=== PATIENT | female | born 1980 | race Caucasian/White ===

== ENCOUNTER 2017-04-13 19:53 | Emergency (ER) | payer SELFPAY ==
[2017-04-13 20:28] VITALS: BP 131/83
[2017-04-13] MEDS ORDERED: ACETAMINOPHEN 325 MG TABLET PO ONE (21:06)
[2017-04-13] MEDS ORDERED: ONDANSETRON 4 MG TAB.RAPDIS PO ONE (21:06)
[2017-04-13 21:16] LABS: APPEARANCE,URINE SLIGHTLY-CLOUDY; BILIRUBIN,URINE NEGATIVE (NEGATIVE); GLUCOSE, URINE NEGATIVE (NEGATIVE); KETONES,URINE NEGATIVE (NEGATIVE); LEUKOCYTE ESTERASE,URINE SMALL (NEGATIVE); NITRITE,URINE POSITIVE (NEGATIVE); PROTEIN,URINE 30 mg/dL (NEGATIVE); URINE SPECIFIC GRAVITY 1.013
[2017-04-13] MEDS ORDERED: CIPROFLOXACIN HCL 500 MG TABLET PO ONE (22:07)
--- NOTE | 2017-04-13 22:10 | ER Document Report ---
Addendum entered and electronically signed by DIONNE BEARDEN PA-C 04/14/17 11:53 : Course - Re-evaluation Re-evalutation: 04/14/17 11:52 [facility] called with a question about the Rx of Cipro for a UTI that was prescribed yesterday. The script was written for 3 days, but there were directions for 5 days. Approved change to a 5 day prescription of Cipro 500mg PO BID #[id number]. - Vital Signs Vital signs: Temp Pulse Resp BP Pulse Ox 97.4 F 81 17 131/83 H 98 04/13/17 22:28 04/13/17 22:28 04/13/17 22:28 04/13/17 20:26 04/13/17 22:38 - Laboratory Laboratory results interpreted by me: 04/13/17 20:58 Urine Protein 30 H Urine Nitrite POSITIVE H Urine Urobilinogen 2.0 H Ur Leukocyte Esterase SMALL H Urine Ascorbic Acid 20 H Original Note: HPI - HPI Patient complains to provider of: pelvic pain Onset: Other - wednesdayapril 09 Onset/Duration: Sudden Quality of pain: Achy Pain Level: 2 Context: currently on her period, no vaginal d/c Associated Symptoms: Chills, Fever, Headache, Nausea. denies: Diarrhea Exacerbated by: Denies Relieved by: Denies Similar symptoms previously: No Recently seen / treated by doctor: No - CARDIOVASCULAR Cardiovascular: DENIES: Chest pain - REPRODUCTIVE LMP: 04/13/17 Reproductive: DENIES: : - DERM Skin Color: Normal, [place] Past Medical History - Social History Smoking Status: Current Every Day Smoker Chew tobacco use (# tins/day): No Frequency of alcohol use: None Drug Abuse: None Family History: Reviewed & Not Pertinent Patient has suicidal ideation: No Patient has homicidal ideation: No Renal/ Medical History: Denies: Hx Peritoneal Dialysis Skin Medical History: Reports Hx MRSA Past Surgical History: Reports: Hx Section - x4 - Immunizations Hx Diphtheria, Pertussis, Tetanus Vaccination: Yes Vertical Provider Document - CONSTITUTIONAL Agree With Documented VS: Yes Exam Limitations: No Limitations General Appearance: WD/WN, No Apparent Distress - INFECTION CONTROL TRAVEL OUTSIDE OF THE [place] IN LAST 30 DAYS: No - HEENT HEENT: Atraumatic, Normal ENT Exam, Normocephalic, PERRLA Notes: Uvula midline. Airway patent. No evidence of tonsillar enlargement, peritonsillar abscess, retropharyngeal abscess. - NECK Neck: Normal Inspection. negative: Lymphadenopathy-Left, Lymphadenopathy-Right - RESPIRATORY Respiratory: Breath Sounds Normal, No Respiratory Distress, Chest Non-Tender O2 Sat by Pulse Oximetry: 98 - CARDIOVASCULAR Cardiovascular: Regular Rate, Regular Rhythm, No Murmur Pulses: Normal: Radial, Dorsalis pedis - GI/ABDOMEN Gastrointestinal: Abdomen Soft, Abdomen Non-Tender, No Organomegaly, Normal Bowel Sounds - REPRODUCTIVE Female Genitalia: Normal Inspection. negative: CMT, Adnexal Pain-Right, Adnexal Pain-Left - BACK Back: Normal Inspection. negative: CVA Tenderness-Right, CVA Tenderness-Left - MUSCULOSKELETAL/EXTREMETIES Musculoskeletal/Extremeties: MAEW, FROM, Non-Tender, No Edema. negative: Eccymosis - NEURO Level of Consciousness: Awake, Alert, Appropriate Motor/Sensory: No Motor Deficit, No Sensory Deficit - DERM Integumentary: Warm, Dry, No Rash Course - Re-evaluation Re-evalutation: 04/13/17 22:38 37-year-old female who is hemodynamic stable, no acute distress and afebrile. Urinalysis shows evidence of urinary tract infection. Discharge patient home on p.o. antibiotics instruction to follow-up with primary care - Vital Signs Vital signs: Temp Pulse Resp BP Pulse Ox 98.6 F 88 16 131/83 H 98 04/13/17 20:26 04/13/17 20:26 04/13/17 20:26 04/13/17 20:26 04/13/17 20:26 - Laboratory Laboratory results interpreted by me: 04/13/17 20:58 Urine Protein 30 H Urine Nitrite POSITIVE H Urine Urobilinogen 2.0 H Ur Leukocyte Esterase SMALL H Urine Ascorbic Acid 20 H Discharge - Discharge Clinical Impression: UTI (urinary tract infection) Condition: Good Disposition: HOME, SELF-CARE Additional Instructions: URINARY TRACT INFECTION: Your evaluation indicates that you have a urinary tract infection. This is due to germs growing in the bladder. This is a common problem. This infection usually responds quickly to antibiotics. Your antibiotic should be taken exactly as prescribed. Drink plenty of fluids -- three to four quarts a day. Occasionally, a bladder anesthetic will be prescribed to help stop the feeling of urgency until the antibiotic has a chance to clear the infection. This may cause your urine to be dark orange. Certain urine infections require a culture. If the doctor obtained a culture, the results will be back in two days. You should call to see if a change in treatment is needed. A repeat urinalysis after you finish treatment is often recommended. The physician will let you know if further testing is required. Call the doctor if you develop fever, chills, flank pain, inability to urinate, or blood in the urine. ANTIBIOTIC THERAPY: You have been given an antibiotic prescription. It's important that you take all the medication, unless instructed otherwise by your physician. Failure to complete the entire course can result in relapse of your condition. Common side effects of antibiotics include nausea, intestinal cramping, or diarrhea. Women may develop vaginal yeast infections, and babies can get yeast (thrush) in the mouth following the use of antibiotics. Contact your physician if you develop significant side effects from this medication. Allergy to this antibiotic can result in hives, wheezing, faintness, or itching. If symptoms of allergy occur, stop the medication and call the doctor. CIPROFLOXACIN: You have been given an antibacterial agent, ciprofloxacin (Cipro). This medicine is not related to the penicillins, sulfas, cephalosporins, or tetracyclines. It is often given to patients who are allergic to these drugs. It has been chosen for you either because other drugs are not appropriate, or because of the nature of your problem. Cipro should not be taken with antacids, as these can decrease its effectiveness. It can be taken without regard to meals. CIPRO SHOULD NOT BE TAKEN BY CHILDREN, NURSING WOMEN, OR WOMEN. Although Cipro is usually well-tolerated, common side effects can include nausea and diarrhea. Contact your doctor if you experience any unusual symptoms while on this medication, such as joint pain or swelling, shortness of breath, wheezing, faintness, or hives. FOLLOW-UP CARE: If you have been referred to a physician for follow-up care, call the physician s office for an appointment as you were instructed or within the next two days. If you experience worsening or a significant change in your symptoms, notify the physician immediately or return to the Emergency Department at any time for re-evaluation. Prescriptions: Ciprofloxacin HCl [Cipro 500 mg Tablet] 500 mg PO BID #6 tablet Ondansetron [Zofran Odt 4 mg Tablet] 1 - 2 tab PO Q4H PRN #15 tab.rapdis PRN Reason: For Nausea/Vomiting Forms: Return to Work Referrals: RAFIA CASEY MD [ACTIVE STAFF] - Follow up as needed
== END 2017-04-13 22:28 | disposition home or self-care (01) ==
LOC: ER 19:53
DX: N39.0 Urinary tract infection, site not specified (principal); R10.2 Pelvic and perineal pain; R50.9 Fever, unspecified; R51 Headache; R11.0 Nausea; F17.200 Nicotine dependence, unspecified, uncomplicated
CPT/HCPCS: 99283; 87070; 87880; 81025; 81001; 87804; S0119

== ENCOUNTER 2017-04-20 06:44 | Emergency (ER) | payer SELFPAY ==
--- NOTE | 2017-04-20 07:13 | ER Document Report ---
ED General - General Chief Complaint: Flank Pain Stated Complaint: LEFT SIDE FLANK PAIN Time Seen by Provider: 04/20/17 06:48 Mode of Arrival: Ambulatory Information source: Patient Notes: A 7-year-old female who is diagnosed as a UTI approximately 1 week ago who has been on Cipro for 5 days presents with complaints of left flank pain. Patient notes she had a fever then but the fever has since resolved. Patient admits to some burning on urination TRAVEL OUTSIDE OF THE [place] IN LAST 30 DAYS: No - HPI Onset: Last week Onset/Duration: Persistent Quality of pain: Achy Severity: Mild Pain Level: 1 Associated symptoms: Other Exacerbated by: Other - Urination Relieved by: Denies Similar symptoms previously: Yes Recently seen / treated by doctor: Yes - Related Data Allergies/Adverse Reactions: No Known Allergies Allergy (Unverified 04/20/17 06:48) Past Medical History - Social History Smoking Status: Current Every Day Smoker Cigarette use (# per day): Yes Chew tobacco use (# tins/day): No Smoking Education Provided: No Family History: Reviewed & Not Pertinent Renal/ Medical History: Denies: Hx Peritoneal Dialysis Skin Medical History: Reports Hx MRSA Past Surgical History: Reports: Hx Section - x4 - Immunizations Hx Diphtheria, Pertussis, Tetanus Vaccination: Yes Review of Systems - Review of Systems Notes: REVIEW OF SYSTEMS: CONSTITUTIONAL : Denies fever, chills, or sweats. Denies recent illness. EENT: Denies eye, ear, throat, or mouth pain or symptoms. Denies nasal or sinus congestion or discharge. Denies throat, tongue, or mouth swelling or difficulty swallowing. CARDIOVASCULAR: Denies chest pain. Denies palpitations or racing or irregular heart beat. Denies ankle edema. RESPIRATORY: Denies cough, cold, or chest congestion. Denies shortness of breath, difficulty breathing, or wheezing. GASTROINTESTINAL: Denies abdominal pain or distention. Denies nausea, vomiting , or diarrhea. Denies blood in vomitus, stools, or per rectum. Denies black, tarry stools. Denies constipation. GENITOURINARY: burning on urination FEMALE GENITOURINARY: Denies vaginal bleeding, heavy or abnormal periods, irregular periods. Denies vaginal discharge or odor. MUSCULOSKELETAL: left flank tenderness SKIN: Denies rash, lesions or sores. HEMATOLOGIC : Denies easy bruising or bleeding. LYMPHATIC: Denies swollen, enlarged glands. NEUROLOGICAL: Denies confusion or altered mental status. Denies passing out or loss of consciousness. Denies dizziness or lightheadedness. Denies headache. Denies weakness or paralysis or loss of use of either side. Denies problems with gait or speech. Denies sensory loss, numbness, or tingling. Denies seizures. PHYSICAL EXAMINATION: GENERAL: Well-appearing, well-nourished and in no acute distress. HEAD: Atraumatic, normocephalic. EYES: Pupils equal round and reactive to light, extraocular movements intact, conjunctiva are normal. ENT: Nares patent, oropharynx clear without exudates. Moist mucous membranes. NECK: Normal range of motion, supple without lymphadenopathy LUNGS: Breath sounds clear to auscultation bilaterally and equal. No wheezes rales or rhonchi. HEART: Regular rate and rhythm without murmurs ABDOMEN: Soft, nontender, nondistended abdomen. No guarding, no rebound. No masses appreciated. left cva tenderness Female : deferred Musculoskeletal: Normal range of motion, no pitting or edema. No cyanosis. NEUROLOGICAL: Cranial nerves grossly intact. Normal speech, normal gait. Normal sensory, motor exams PSYCH: Normal mood, normal affect. SKIN: Warm, Dry, normal turgor, no rashes or lesions noted. PSYCHIATRIC: Denies anxiety or stress. Denies depression, suicidal ideation, or homicidal ideation. ALL OTHER SYSTEMS REVIEWED AND NEGATIVE. Dictation was performed using [employer] voice recognition software Physical Exam - Vital signs Vitals: Temp Pulse Resp BP Pulse Ox 97.6 F 68 18 144/84 H 100 04/20/17 06:48 04/20/17 06:48 04/20/17 06:48 04/20/17 06:48 04/20/17 06:48 Course - Re-evaluation Re-evalutation: 04/20/17 07:13 Lab work urinalysis pending patient was probably treated with Cipro appropriately which resolved her fevers however did not completely resolve her symptoms 04/20/17 08:20 Patient's lab work notes significant improvement. I do not believe she has infection still, urine culture has been ordered but given the patient is afebrile and labwork notes significant improvement I believe she is stable for discharge with pain control and a work excuse Very strict return precautions provided to the patient After performing a Medical Screening Examination, I estimate there is LOW risk for ACUTE APPENDICITIS, BOWEL OBSTRUCTION, ACUTE CHOLECYSTITIS, PERFORATED DIVERTICULITIS, INCARCERATED HERNIA, PANCREATITIS, PELVIC INFLAMMATORY DISEASE, PERFORATED ULCER, ECTOPIC , or TUBO-OVARIAN ABSCESS, thus I consider the discharge disposition reasonable. Also, there is no evidence or peritonitis , sepsis, or toxicity. I have reevaluated this patient multiple times and no significant life threatening changes are noted. The patient and I have discussed the diagnosis and risks, and we agree with discharging home with close follow-up with the understanding that symptoms and presentations can change. We also discussed returning to the Emergency Department immediately if new or worsening symptoms occur. We have discussed the symptoms which are most concerning (e.g., bloody stool, fever, changing or worsening pain, vomiting) that necessitate immediate return. - Vital Signs Vital signs: Temp Pulse Resp BP Pulse Ox 97.6 F 68 18 144/84 H 100 04/20/17 06:48 04/20/17 06:48 04/20/17 06:48 04/20/17 06:48 04/20/17 06:48 - Laboratory Result Diagrams: 04/20/17 07:14 04/20/17 07:14 Laboratory results interpreted by me: 04/20/17 04/20/17 06:53 07:14 Hgb 11.0 L Hct 34.1 L RDW 17.7 H Urine Blood SMALL H Ur Leukocyte Esterase TRACE H Discharge - Discharge Clinical Impression: Left flank pain, History of UTI Condition: Stable Disposition: HOME, SELF-CARE Instructions: Abdominal Pain ([facility]) Additional Instructions: Follow up with your physician tomorrow for further care or return to the ED IMMEDIATELY if symptoms worsen or new concerns occur. If you cannot afford to follow up with your primary care physician a list of low cost clinics have been provided at the end of your discharge papers as well. Prescriptions: Hydrocodone/Acetaminophen [Cedar 5-325 mg Tablet] 1 tab PO Q6 #10 tablet Forms: Return to Work
[2017-04-20] MEDS ORDERED: HYDROCODONE/ACETAMINOPHEN 5-325 MG TABLET PO ONE (07:14)
[2017-04-20 07:28] LABS: APPEARANCE,URINE SLIGHTLY-CLOUDY; BILIRUBIN,URINE NEGATIVE (NEGATIVE); GLUCOSE, URINE NEGATIVE (NEGATIVE); KETONES,URINE NEGATIVE (NEGATIVE); LEUKOCYTE ESTERASE,URINE TRACE (NEGATIVE); NITRITE,URINE NEGATIVE (NEGATIVE); PROTEIN,URINE NEGATIVE (NEGATIVE); URINE SPECIFIC GRAVITY 1.008; UROBILINOGEN,URINE NEGATIVE mg/dL (<2.0)
[2017-04-20 07:38] LABS: ABSOLUTE EOSINOPHILS # (AUTO) 0.1 10^3/uL (0.0-0.6); ABSOLUTE LYMPHOCYTES (AUTO) 1.4 10^3/uL (0.5-4.7); ABSOLUTE MONOCYTES (AUTO) 0.4 10^3/uL (0.1-1.4); ABSOLUTE NEUT (AUTO) 5.2 10^3/uL (1.7-8.2); BASOPHILS % (AUTO) 0.5 % (0-2); EOSINOPHILS % (AUTO) 1.5 % (0-6); HEMATOCRIT 34.1 % (36.0-47.0); HGB HCT DIFFERENCE -1.1; LYMPHOCYTES % (AUTO) 19.7 % (13-45); MEAN CORPUSCULAR HEMOGLOBIN 27.3 pg (27.0-33.4); MEAN CORPUSCULAR HGB CONC 32.3 g/dL (32.0-36.0); MEAN CORPUSCULAR VOLUME 85 fl (80-97); MONOCYTES % (AUTO) 6.2 % (3-13); RED BLOOD COUNT 4.03 10^6/uL (3.72-5.28); RED CELL DISTRIBUTION WIDTH 17.7 % (11.5-14.0); SEGMENTED NEUTROPHILS % (AUTO) 72.1 % (42-78); WHITE BLOOD COUNT 7.2 10^3/uL (4.0-10.5)
[2017-04-20 08:05] LABS: ALANINE AMINOTRANSFERASE 27 U/L (9-52); ALBUMIN 3.5 g/dL (3.5-5.0); ALKALINE PHOSPHATASE 74 U/L (38-126); ANION GAP 11 (5-19); ASPARTATE AMINO TRANSFERASE 22 U/L (14-36); BILIRUBIN,DIRECT 0.2 mg/dL (0.0-0.4); BILIRUBIN,TOTAL 0.3 mg/dL (0.2-1.3); BLOOD UREA NITROGEN 11 mg/dL (7-20); CALCIUM 9.2 mg/dL (8.4-10.2); CARBON DIOXIDE 24 mmol/L (22-30); CHLORIDE 106 mmol/L (98-107); CREATININE RESULT 0.79 mg/dL (0.52-1.25); GLUCOSE 95 mg/dL (75-110); POTASSIUM 4.4 mmol/L (3.6-5.0); SODIUM 140.7 mmol/L (137-145); TOTAL PROTEIN 6.6 g/dL (6.3-8.2)
[2017-04-20 09:30] VITALS: BP 133/87
== END 2017-04-20 09:18 | disposition home or self-care (01) ==
LOC: ER 06:44
DX: R10.9 Unspecified abdominal pain (principal); F17.210 Nicotine dependence, cigarettes, uncomplicated; Z87.440 Personal history of urinary (tract) infections; Z86.14 Personal history of Methicillin resistant Staphylococcus aureus infection
CPT/HCPCS: 36415; 80053; 81001; 81025; 85025; 87086; 99284

== ENCOUNTER 2019-11-22 | Emergency (ER) | payer SELFPAY ==
[2019-11-22 02:39] VITALS: BP 128/75
--- NOTE | 2019-11-22 05:36 | EKG REPORT ---
SEVERITY:- NORMAL ECG - SINUS RHYTHM : Confirmed by: Romina Santiago MD 22-Nov-2019 05:35:58
== END 2019-11-22 03:16 | disposition left against medical advice (07) ==
LOC: ER
DX: Z53.21 Procedure and treatment not carried out due to patient leaving prior to being seen by health care provider (principal)
CPT/HCPCS: 93005; 93010

== ENCOUNTER 2020-07-05 19:41 | Emergency (ER) | payer SELFPAY ==
[2020-07-05 19:58] VITALS: BP 134/99
--- NOTE | 2020-07-05 19:59 | ER Document Report ---
ED Medical Screen (RME) - General Chief Complaint: Abdominal Pain Stated Complaint: LEFT LOWER LEFT QUADRANT ABDOMINAL PAIN,CRAMPING Time Seen by Provider: 07/05/20 19:57 Mode of Arrival: Ambulatory Information source: Patient Notes: Patient states that she accidentally had left a tampon in 4 days ago and did not realize it until after having intercourse. Patient states that she attempted to remove the tampon but could not until the next day. Patient states that she has had left lower pelvic pain for the past 4 days. Patient reports vaginal discharge. Patient denies any urinary symptoms. Patient denies any fever. I have greeted and performed a rapid initial assessment of this patient. A comprehensive ED assessment and evaluation of the patient, analysis of test results and completion of the medical decision making process will be conducted by additional ED providers. TRAVEL OUTSIDE OF THE [place] IN LAST 30 DAYS: No - Related Data Allergies/Adverse Reactions: No Known Allergies Allergy (Unverified 04/20/17 06:48) Past Medical History Renal/ Medical History: Denies: Hx Peritoneal Dialysis Skin Medical History: Reports Hx MRSA Past Surgical History: Reports: Hx Section - x4 - Immunizations Hx Diphtheria, Pertussis, Tetanus Vaccination: Yes Physical Exam - General Notes: Patient speech very thick, at times difficult to understand - Abdominal Tenderness: Tender - Lower pelvic tenderness
[2020-07-05] MEDS ORDERED: NORMAL SALINE 1000 ML 1,000 ML IV ONE (20:32)
[2020-07-05 20:43] LABS: ABSOLUTE EOSINOPHILS # (AUTO) 0.1 10^3/uL (0.0-0.6); ABSOLUTE LYMPHOCYTES (AUTO) 1.1 10^3/uL (0.5-4.7); ABSOLUTE MONOCYTES (AUTO) 0.7 10^3/uL (0.1-1.4); ABSOLUTE NEUT (AUTO) 6.4 10^3/uL (1.7-8.2); BASOPHILS % (AUTO) 0.4 % (0-2); EOSINOPHILS % (AUTO) 1.3 % (0-6); HEMATOCRIT 29.4 % (36.0-47.0); HEMOGLOBIN 9.8 g/dL (12.0-15.5); LYMPHOCYTES % (AUTO) 13.6 % (13-45); MEAN CORPUSCULAR HEMOGLOBIN 24.3 pg (27.0-33.4); MEAN CORPUSCULAR HGB CONC 33.3 g/dL (32.0-36.0); MEAN CORPUSCULAR VOLUME 73 fl (80-97); MONOCYTES % (AUTO) 8.4 % (3-13); PLATELET COUNT 300 10^3/uL (150-450); RED BLOOD COUNT 4.03 10^6/uL (3.72-5.28); RED CELL DISTRIBUTION WIDTH 20.3 % (11.5-14.0); SEGMENTED NEUTROPHILS % (AUTO) 76.3 % (42-78); TOTAL CELLS COUNTED % (AUTO) 100 %; WHITE BLOOD COUNT 8.4 10^3/uL (4.0-10.5)
[2020-07-05 21:04] LABS: ALBUMIN 3.8 g/dL (3.5-5.0); ALKALINE PHOSPHATASE 97 U/L (38-126); ANION GAP 10 (5-19); ASPARTATE AMINO TRANSFERASE 17 U/L (14-36); BILIRUBIN,DIRECT 0.2 mg/dL (0.0-0.4); BILIRUBIN,TOTAL 0.6 mg/dL (0.2-1.3); BLOOD UREA NITROGEN 7 mg/dL (7-20); CALCIUM 9.5 mg/dL (8.4-10.2); CARBON DIOXIDE 26 mmol/L (22-30); CHLORIDE 102 mmol/L (98-107); GLUCOSE 112 mg/dL (75-110); POTASSIUM 3.9 mmol/L (3.6-5.0); TOTAL PROTEIN 6.7 g/dL (6.3-8.2)
[2020-07-05 21:05] LABS: ALCOHOL < 10 mg/dL (NONE DETECTED)
--- NOTE | 2020-07-05 23:52 | RADIOLOGY REPORT (SQ) ---
CLINICAL INDICATION: lower pelvic pain. . TECHNIQUE: Real time multiplanar ultrasonographic grimes scale imaging was obtained of the pelvis. Imaging obtained transabdominal. 32 images obtained. COMPARISON: None. CORRELATION: None. FINDINGS: The uterus is of normal size contour and echotexture. It measures 8.2 x 4.5 x 6.2 centimeters. It is of homogeneous echotexture. Endometrial stripe complex is 1.8 cm. . Ovaries are not visualized. No significant free fluid within the pelvis.. IMPRESSION: Unremarkable examination. Uterus and cervix appear grossly normal. The ovaries are not seen. No obvious free fluid.
--- NOTE | 2020-07-06 00:38 | ER Document Report ---
ED GI/ - General Chief Complaint: Abdominal Pain Stated Complaint: LEFT LOWER LEFT QUADRANT ABDOMINAL PAIN,CRAMPING Time Seen by Provider: 07/05/20 19:57 Mode of Arrival: Ambulatory Information source: Patient Notes: ED Medical Screen (Margie wilder) - General Chief Complaint: Abdominal Pain Stated Complaint: LEFT LOWER LEFT QUADRANT ABDOMINAL PAIN,CRAMPING Time Seen by Provider: 07/05/20 19:57 Mode of Arrival: Ambulatory Information source: Patient Notes: Patient states that she accidentally had left a tampon in 4 days ago and did not realize it until after having intercourse. Patient states that she attempted to remove the tampon but could not until the next day. Patient states that she has had left lower pelvic pain for the past 4 days. Patient reports vaginal discharge. Patient denies any urinary symptoms. Patient denies any fever. My Notes 40-year-old female with above history. Ultrasound within normal limits CBC with 9.8 hemoglobin and chemistries within normal limits. I was unable to see this patient because she left AMA prior to my exam. TRAVEL OUTSIDE OF THE [place] IN LAST 30 DAYS: No - HPI Patient complains to provider of: Flank pain, Vaginal discharge - Related Data Allergies/Adverse Reactions: No Known Allergies Allergy (Unverified 04/20/17 06:48) Past Medical History - General Information source: Patient - Social History Smoking Status: Current Every Day Smoker Cigarette use (# per day): Yes Chew tobacco use (# tins/day): No Smoking Education Provided: Yes Frequency of alcohol use: None Drug Abuse: None Lives with: Family Family History: Reviewed & Not Pertinent Patient has suicidal ideation: No Patient has homicidal ideation: No Renal/ Medical History: Denies: Hx Peritoneal Dialysis Skin Medical History: Reports Hx MRSA Past Surgical History: Reports: Hx Section - x4 - Immunizations Hx Diphtheria, Pertussis, Tetanus Vaccination: Yes Review of Systems - Review of Systems Constitutional: No symptoms reported EENT: No symptoms reported Cardiovascular: No symptoms reported Respiratory: No symptoms reported Gastrointestinal: No symptoms reported Genitourinary: See HPI, Discharge Female Genitourinary: No symptoms reported Musculoskeletal: No symptoms reported Skin: No symptoms reported Hematologic/Lymphatic: No symptoms reported Neurological/Psychological: No symptoms reported Physical Exam - Vital signs Vitals: Temp Pulse Resp BP Pulse Ox 99.4 F 100 18 134/99 H 100 07/05/20 19:55 07/05/20 19:55 07/05/20 19:55 07/05/20 19:55 07/05/20 19:55 Interpretation: Hypertensive Course - Vital Signs Vital signs: Temp Pulse Resp BP Pulse Ox 99.4 F 100 18 134/99 H 100 07/05/20 19:58 07/05/20 19:55 07/05/20 19:55 07/05/20 19:55 07/05/20 19:55 - Laboratory Result Diagrams: 07/05/20 20:09 07/05/20 20:09 Laboratory results interpreted by me: 07/05/20 07/05/20 20:09 20:09 Hgb 9.8 L Hct 29.4 L MCV 73 L MCH 24.3 L RDW 20.3 H Glucose 112 H Discharge - Discharge Clinical Impression: vaginal foreign body tampon Condition: Good Disposition: AGAINST MEDICAL ADVICE
== END 2020-07-06 00:35 | disposition left against medical advice (07) ==
LOC: ER 19:41
DX: T19.2XXA Foreign body in vulva and vagina, initial encounter (principal); X58.XXXA Exposure to other specified factors, initial encounter; R10.2 Pelvic and perineal pain; F17.210 Nicotine dependence, cigarettes, uncomplicated; Z53.20 Procedure and treatment not carried out because of patient's decision for unspecified reasons
CPT/HCPCS: 99285; 96360; 36415; 80307; 84703; 85025; 80053; 76856; 93976; J7030

== ENCOUNTER 2020-07-06 14:19 | Emergency (ER) | payer SELFPAY ==
--- NOTE | 2020-07-06 14:45 | ER Document Report ---
ED GI/ - General Chief Complaint: Abdominal Pain Stated Complaint: VAGINAL PAIN Time Seen by Provider: 07/06/20 14:31 Primary Care Provider: RAFIA CASEY MD [ACTIVE STAFF] - 07/08/20 Mode of Arrival: Wheelchair Information source: Patient Notes: 40-year-old female presented to ED for complaint of lower abdominal pain worse on the left lower side. She states she has no appetite and will not eat because it is too painful. She states she does have nausea at times due to the pain she does not have any fever. She states the pain started 5 days ago. She states she came in here yesterday and laid on the floor for 5 hours and never got any treatment so she got up and left and went home Constitutional: Negative for fever. HENT: Negative for sore throat. Eyes: Negative for visual changes. Cardiovascular: Negative for chest pain. Respiratory: Negative for shortness of breath. Gastrointestinal: Complains of severe lower left abdomen pain with nausea Genitourinary: Complains of pelvic pain and thinks she is got toxic shock syndrome but no fever Musculoskeletal: Negative for back pain. Skin: Negative for rash. Neurological: Negative for headaches, weakness or numbness. 10 point ROS negative except as marked above and in HPI. PHYSICAL EXAMINATION: GENERAL: Well-appearing, well-nourished and in no acute distress. HEAD: Atraumatic, normocephalic. EYES: Pupils equal round and reactive to light, extraocular movements intact, sclera anicteric, conjunctiva are normal. ENT: nares patent, oropharynx clear without exudates. Moist mucous membranes. NECK: Normal range of motion, supple without lymphadenopathy LUNGS: Breath sounds clear to auscultation bilaterally and equal. No wheezes rales or rhonchi. HEART: Regular rate and rhythm without murmurs ABDOMEN: Soft, nontender, normoactive bowel sounds. No guarding, no rebound. No masses appreciated. Genitourinary female: Extremely painful pelvic exam. Adnexal tenderness with copious amounts of green vaginal discharge very foul-smelling EXTREMITIES: Normal range of motion, no pitting or edema. No cyanosis. NEUROLOGICAL: No focal neurological deficits. Moves all extremities spontane ously and on command. PSYCH: Normal mood, normal affect. SKIN: Warm, Dry, normal turgor, no rashes or lesions noted. TRAVEL OUTSIDE OF THE [place] IN LAST 30 DAYS: No - HPI Patient complains to provider of: Abdominal pain, Other - No appetite Onset: Other - 5 days ago Timing/Duration: Intermittent Quality of pain: Cramping, Sharp Severity at maximum: Severe Severity in ED: Severe Pain Level: 5 Location: LLQ Vaginal bleeding (Compared to normal period): None Associated symptoms: Nausea Exacerbated by: Sitting, Movement, Walking Relieved by: Denies Similar symptoms previously: Yes Recently seen / treated by doctor: Yes - Related Data Allergies/Adverse Reactions: No Known Allergies Allergy (Unverified 04/20/17 06:48) Past Medical History - General Information source: Patient - Social History Smoking Status: Current Every Day Smoker Cigarette use (# per day): Yes - Pack per day Smoking Education Provided: Yes - 3 Frequency of alcohol use: Occasional Lives with: Family Family History: Reviewed & Not Pertinent Patient has suicidal ideation: No Patient has homicidal ideation: No Renal/ Medical History: Denies: Hx Peritoneal Dialysis Skin Medical History: Reports Hx MRSA Past Surgical History: Reports: Hx Section - x4 - Immunizations Hx Diphtheria, Pertussis, Tetanus Vaccination: Yes Physical Exam - Vital signs Vitals: Temp Pulse Resp BP Pulse Ox 97.9 F 104 H 20 132/103 H 100 07/06/20 14:23 07/06/20 14:23 07/06/20 14:23 07/06/20 14:23 07/06/20 14:23 Course - Re-evaluation Re-evalutation: 07/07/20 01:08 Discussed labs and pelvic exam with patient. Also discussed with Dr. Shelby. Julissa hawkins was treated with Rocephin 1 g IV azithromycin 1 g and doxycycline 100 mg and discharged home with prescription for doxycycline 100 mg twice daily. She was instructed to follow-up with her primary care and/or VISUALIZER. She was informed that she had pelvic inflammatory disease with gonorrhea and that she needed to abstain from any sexual intercourse till she completed her medications and her partner was also treated. She states that it was a random hookup at a bar and she does not know the person. I did give her a copy of the lab results and told her to please follow-up with an VISUALIZER or return to the ED for any increase in symptoms. Patient verbalized understanding and agreement with treatment plan and patient was discharged home. - Vital Signs Vital signs: Temp Pulse Resp BP Pulse Ox 98.3 F 104 H 20 153/84 H 100 07/06/20 17:50 07/06/20 14:23 07/06/20 14:23 07/06/20 17:42 07/06/20 17:42 - Laboratory Result Diagrams: 07/06/20 14:48 07/06/20 14:48 Laboratory results interpreted by me: 07/06/20 07/06/20 07/06/20 14:48 14:48 14:48 WBC 12.6 H Hgb 10.4 L Hct 32.0 L MCV 74 L MCH 23.8 L RDW 20.9 H Lymph % (Auto) 7.2 L Absolute Neuts (auto) 10.5 H Seg Neutrophils % 83.4 H Sodium 134.3 L BUN 5 L Creatinine 0.50 L Glucose 117 H Lipase 11.2 L Urine Urobilinogen 2.0 H Ur Leukocyte Esterase LARGE H N.gonorrhoeae DNA (PCR) 07/06/20 15:44 WBC Hgb Hct MCV MCH RDW Lymph % (Auto) Absolute Neuts (auto) Seg Neutrophils % Sodium BUN Creatinine Glucose Lipase Urine Urobilinogen Ur Leukocyte Esterase N.gonorrhoeae DNA (PCR) DETECTED H Discharge - Discharge Clinical Impression: PID (acute pelvic inflammatory disease), Gonorrhea Condition: Stable Disposition: HOME, SELF-CARE Additional Instructions: PELVIC PAIN: There are many causes of pain in the pelvic area. The cause could be the tubes, ovaries, uterus, intestines, appendix, pelvic muscles and connective tissue, or the urinary tract. The cause of your pelvic pain is not clear. However, it seems safe to treat you outside the hospital. If the pain sounds like a temporary problem, we sometimes wait to see if it goes away. Other patients may need additional tests, such as pelvic ultrasound or cultures. Conditions may change. Call us or come back for reexamination if any problems occur, such as: (1) Pain that becomes more severe, steady, or becomes concentrated in one specific area. Also, pain that is more severe with movement or coughing. (2) Vomiting that persists or becomes more frequent. (3) Blood in the vomitus, urine, or bowel movements. Blood in the stool may have a tarry or black appearance. (4) Shaking chills or fever greater than 100 degrees. (5) The abdomen becomes more distended or swollen. (6) Bowel movements cease. (7) Heavy vaginal bleeding. PELVIC INFLAMMATORY DISEASE: You have been diagnosed as having pelvic inflammatory disease (PID). This is an infection of the fallopian tubes and surrounding areas of the pelvis. Sym ptoms are usually pelvic pain and discharge. The infection can do permanent damage to the tubes and ovaries. It should be taken very seriously. Treatment is antibiotics, which may be given by vein or by injection if the infection seems serious. It's important that you receive all recommended medication. Condoms help prevent spread of this infection to others. Because this infection is spread sexually, it's important that your sexual partner be checked before resuming sexual relations. If a culture shows gonorrhea or chlamydia organisms, the law requires that this be reported to the health department. Call the doctor or return at once if you develop increasing fever, rash, severe pelvic pain, vaginal bleeding (other than your period), or problems with your bladder or bowels. PAIN MEDICATION INJECTION: You have received an injection of a pain medication. You should experience significant pain relief within 45 minutes. This drug is a narcotic -- it will impair your judgement, slow your reaction time and make you sleepy (as well as relieve your pain). Narcotics also can cause nausea. You should not drive, work with machinery, or perform any task requiring mental alertness until all effects of the medication are gone -- six to eight hours. Do not take any alcohol, or sedatives, and do not take any other medication without checking with your physician. CEPHALOSPORINS: An antibiotic of the cephalosporin class has been prescribed. This type of antibiotic covers a wide variety of infections, including those of the skin, lungs, middle ear, and urinary tract. This antibiotic is somewhat similar to the penicillin family. In rare cases, a person who is allergic to penicillin will also be allergic to this medication. If you have had a severe allergic reaction to penicillin, and have not taken this antibiotic since that time, notify your doctor. Antibiotics which cover many germs ("broad spectrum" antibiotics) are more likely to cause diarrhea or "yeast" infections. Women prone to vaginal yeast problems may suffer an attack after taking this antibiotic. In infants, oral thrush (white spots "stuck" on the cheek) or yeast diaper rash may result. See your doctor if these problems occur. Call the doctor at once if you develop hives, itching, shortness of breath, or lightheadedness. DOXYCYCLINE: Doxycycline (Vibramycin, Doryx) is an antibiotic of the tetracycline family. This type of drug is useful for infections of the respiratory tract and genital tract, and is sometimes used for intestinal infections. Unlike most tetracyclines, doxycycline can be taken with food. It is longer acting, and (usually) less prone to side effects than regular tetracycline. Tetracycline antibiotics can stain immature teeth and SHOULD NOT BE TAKEN BY CHILDREN, NURSING MOTHERS, OR WOMEN. Tetracyclines can make you more prone to sunburn. Abdominal cramping, nausea, and diarrhea are occasional side effects. Women may experience vaginal yeast infections. Call the doctor at once if you develop hives, itching, shortness of breath, or lightheadedness. AZITHROMYCIN: Azithromycin (Zithromax) is a broad spectrum antibiotic in the same class as erythromycin. It can treat a variety of bacterial infections, but is most frequently used for respiratory infections. Azithromycin is extremely long-lasting. It accumulates in body tissues and continues to kill bacteria for many days. In order to improve absorption, Azithromycin should be taken at least one hour before or two hours after a meal. It does not have the same strong tendency to upset the stomach as erythromycin and is usually very well tolerated. Patients who have had a rash or other true allergic reactions to erythromycin should not take this medication. Call if you develop gastrointestinal distress, severe diarrhea, rash, hives, itching, or shortness of breath. Acetaminophen Acetaminophen may be taken for pain relief or fever control. It's much safer than aspirin, offering a wider range of "safe" dosages. It is safe during . Some brand names are Tylenol, Panadol, Datril, Anacin 3, Tempra, and Liquiprin. Acetaminophen can be repeated every four hours. The following are maximum recommended dosages: WEIGHT Dose Drops Elixir Chewable(80mg) (LBS.) drprs=droppers tsp=teaspoon 6 40 mg .4 ml (1/2) 6-11 80 mg .8 ml (full) 1/2 tsp 1 tab 12-16 120 mg 1 1/2 drprs 3/4 tsp 1 1/2 tabs 17-23 160 mg 2 drprs 1 tsp 2 tabs 24-30 240 mg 3 drprs 1 1/2 tsp 3 tabs 30-35 320 mg 2 tsp 4 tabs 36-41 360 mg 2 1/4 tsp 4 1/2 tabs 42-47 400 mg 2 1/2 tsp 5 tabs 48-53 480 mg 3 tsp 6 tabs 54-59 520 mg 3 1/4 tsp 6 1/2 tabs 60-64 560 mg 3 1/2 tsp 7 tabs 65-70 600 mg 3 3/4 tsp 7 1/2 tabs 71-76 640 mg 4 tsp 8 tabs 77-82 720 mg 4 1/2 tsp 9 tabs 83-88 800 mg 5 tsp 10 tabs >89 pounds or adults 650 mg to 900 mg Acetaminophen can be repeated every four hours. Maximum daily dose not to exceed 4000 mg. These maximum recommended dosages are slightly higher than the dosages written on the product container, but these dosages are very safe and well below the toxic dosage for acetaminophen. Ibuprofen Ibuprofen is an excellent, safe drug for pain control. In addition, it has potent antiinflammatory effects which are beneficial, especially in the treatment of injuries, arthritis, or tendonitis. It's best to take ibuprofen with food. Persons with ulcer disease or allergy to aspirin should notify their physician of this before taking ibuprofen. Take the medication exactly as prescribed. Don't take additional doses unless instructed to do so by your doctor. If you develop wheezing, shortness of breath, hives, faintness, stomach pain, vomiting, or dark black stools, return for re-evaluation at once. FOLLOW-UP CARE: If you have been referred to a physician for follow-up care, call the physicians office for an appointment as you were instructed or within the next two days. If you experience worsening or a significant change in your symptoms, notify the physician immediately or return to the Emergency Department at any time for re-evaluation. Prescriptions: Doxycycline Monohydrate 100 mg PO BID #20 tablet Forms: Elevated Blood Pressure, Smoking Cessation Education, Return to Work Referrals: RAFIA CASEY MD [ACTIVE STAFF] - 07/08/20
[2020-07-06 15:24] LABS: ALBUMIN 3.7 g/dL (3.5-5.0); ALKALINE PHOSPHATASE 106 U/L (38-126); ANION GAP 9 (5-19); ASPARTATE AMINO TRANSFERASE 14 U/L (14-36); BILIRUBIN,DIRECT 0.2 mg/dL (0.0-0.4); BILIRUBIN,TOTAL 0.7 mg/dL (0.2-1.3); BLOOD UREA NITROGEN 5 mg/dL (7-20); CALCIUM 9.3 mg/dL (8.4-10.2); CARBON DIOXIDE 22 mmol/L (22-30); CHLORIDE 103 mmol/L (98-107); GLUCOSE 117 mg/dL (75-110); POTASSIUM 3.9 mmol/L (3.6-5.0); TOTAL PROTEIN 6.7 g/dL (6.3-8.2)
[2020-07-06 15:25] LABS: ABSOLUTE BASOPHILS # (AUTO) 0.1 10^3/uL (0.0-0.2); ABSOLUTE EOSINOPHILS # (AUTO) 0.1 10^3/uL (0.0-0.6); ABSOLUTE LYMPHOCYTES (AUTO) 0.9 10^3/uL (0.5-4.7); ABSOLUTE NEUT (AUTO) 10.5 10^3/uL (1.7-8.2); BASOPHILS % (AUTO) 0.4 % (0-2); EOSINOPHILS % (AUTO) 0.7 % (0-6); HEMOGLOBIN 10.4 g/dL (12.0-15.5); LYMPHOCYTES % (AUTO) 7.2 % (13-45); MEAN CORPUSCULAR HEMOGLOBIN 23.8 pg (27.0-33.4); MEAN CORPUSCULAR HGB CONC 32.4 g/dL (32.0-36.0); MEAN CORPUSCULAR VOLUME 74 fl (80-97); MONOCYTES % (AUTO) 8.3 % (3-13); PLATELET COUNT 350 10^3/uL (150-450); RED BLOOD COUNT 4.34 10^6/uL (3.72-5.28); RED CELL DISTRIBUTION WIDTH 20.9 % (11.5-14.0); SEGMENTED NEUTROPHILS % (AUTO) 83.4 % (42-78); TOTAL CELLS COUNTED % (AUTO) 100 %; WHITE BLOOD COUNT 12.6 10^3/uL (4.0-10.5)
[2020-07-06 15:29] LABS: APPEARANCE,URINE SLIGHTLY-CLOUDY; BILIRUBIN,URINE NEGATIVE (NEGATIVE); COLOR,URINE YELLOW; GLUCOSE, URINE NEGATIVE (NEGATIVE); KETONES,URINE NEGATIVE (NEGATIVE); LEUKOCYTE ESTERASE,URINE LARGE (NEGATIVE); NITRITE,URINE NEGATIVE (NEGATIVE); PROTEIN,URINE NEGATIVE (NEGATIVE); URINE SPECIFIC GRAVITY 1.012
[2020-07-06 15:40] LABS: URINE BARBITURATES SCREEN NEGATIVE; URINE BENZODIAZEPINES SCREEN NEGATIVE; URINE COCAINE SCREEN NEGATIVE; URINE METHADONE SCREEN NEGATIVE; URINE PHENCYCLIDINE SCREEN NEGATIVE
[2020-07-06 15:42] LABS: URINE MARIJUANA (THC) SCREEN UNCONFIRMED POSITIVE
[2020-07-06] MEDS ORDERED: HYDROMORPHONE HCL INJ/PF 2 MG/ML AMPULE IV ONE (15:50)
[2020-07-06] MEDS ORDERED: ONDANSETRON HCL INJ/PF 4 MG/2 ML SDV IV ONE (15:50)
[2020-07-06 15:55] LABS: BACTERIA (WET MOUNT) 3+ BACTERIA SEEN; T.VAGINALIS (WET MOUNT) NO TRICHOMONAS SEEN; WBCS (WET MOUNT) 2+ WBCS SEEN; YEAST (WET MOUNT) NO YEAST SEEN
[2020-07-06] MEDS ORDERED: NORMAL SALINE 1000 ML 1,000 ML IV ONE (15:55)
[2020-07-06] MEDS ORDERED: CEFTRIAXONE 1 GM/D5W RTU 1 GM/50 ML RTUPB IV ONE (15:55)
[2020-07-06] MEDS ORDERED: AZITHROMYCIN 250 MG TABLET PO ONE (16:35)
[2020-07-06 17:26] LABS: CHLAM PCR NOT DETECTED (NOT DETECT)
[2020-07-06] MEDS ORDERED: DOXYCYCLINE HYCLATE 100 MG TABLET PO ONE (17:41)
[2020-07-06 17:50] VITALS: BP 153/84
== END 2020-07-06 18:07 | disposition home or self-care (01) ==
LOC: ER 14:19
DX: N73.9 Female pelvic inflammatory disease, unspecified (principal); A54.9 Gonococcal infection, unspecified; R63.0 Anorexia; R11.0 Nausea; R10.2 Pelvic and perineal pain; R10.32 Left lower quadrant pain; F17.210 Nicotine dependence, cigarettes, uncomplicated
CPT/HCPCS: 99406; 99284; 96375; 96365; 36415; 87086; 87210; 83690; 85025; 87088; 80053; 81001; 87186; 80307; 87491; 87591; J1170; J2405; J7030; J0696